=== PATIENT | male | born 1985 | race Caucasian/White ===

== ENCOUNTER 2021-03-09 21:05 | Emergency (ER) | payer SELFPAY ==
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
[2021-03-09 21:12] VITALS: BP 178/106; PULSE 92; RESP 17; TEMP 36.9; O2SAT 97
[2021-03-09 21:27] VITALS: BP 129/79; PULSE 77; RESP 24; O2SAT 96
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
[2021-03-09] MEDS: HYDROcodone/acetaminophen (*CRX) 5-325 MG TABLET 1 TAB PO (23:25)
== END 2021-03-09 23:30 | disposition home or self-care (01) ==
PROVIDERS: Emergency Provider Emergency Medicine
DX: S62.025A Nondisplaced fracture of middle third of navicular [scaphoid] bone of left wrist, initial encounter for closed fracture (principal); S52.042A Displaced fracture of coronoid process of left ulna, initial encounter for closed fracture; V86.56XA Driver of dirt bike or motor/cross bike injured in nontraffic accident, initial encounter
CPT/HCPCS: 29105; 73080; 73110; 73610; 73630; 99284; A4565; A9270

== ENCOUNTER 2022-04-30 16:04 | Emergency (ER) | payer OTHER, SELFPAY ==
[2022-04-30] VITALS (7 sets, daily range): BP systolic 113–129; BP diastolic 86–91; PULSE 84–92; RESP 17–27; TEMP 36.8; O2SAT 96–100
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
[2022-04-30 16:57] LABS: Basophils Absolute Auto 0.1 K/mm3 (0.0-0.1); Basophils Percent Auto 0.4 % (0.2-1.2); Eosinophils Percent Auto 0.2 % (0-4.4); Hematocrit 50.5 % (42.0-52.0); Immature Granulocyte Absolute 0.07 K/mm3 (0.00-0.031); Immature Granulocyte Percent A 0.6 % (0-0.5); Lymphocytes Absolute Auto 1.74 K/mm3 (0.9-3.2); Lymphocytes Percent Auto 13.8 % (18.3-44.2); Mean Corpuscular HGB Conc 33.7 g/dl (32-36); Mean Corpuscular Hemoglobin 28.7 pg (26-34); Mean Corpuscular Volume 85.3 fl (80-100); Mean Platelet Volume 9.9 fl (7.4-10.4); Monocytes Percent Auto 8.2 % (2.6-8.5); Neutrophils Absolute Auto 9.7 K/mm3 (1.3-6.7); Neutrophils Percent Auto 76.8 % (45.5-73.1); Platelet Count Result 296 k/mm3 (150-375); Red Blood Count 5.92 M/mm3 (4.6-6.20); Red Cell Distribution Width 12.5 % (11.5-14.5); White Blood Count 12.6 K/mm3 (4.5-10.0)
[2022-04-30 17:07] LABS: INR 1.1; Prothrombin Time 13.3 Seconds (11.1-14.7)
[2022-04-30 17:16] LABS: Add Urine Microscopic? YES; Appearance Urine Turbid (Clear); Bilirubin Urine 2+ (Negative); Blood Urine 3+ (Negative); Color Urine Red (Yellow); Glucose Urine UA Negative (Negative); Ketones Urine 1+ mg/dL (Negative); Leukocyte Esterase Ur Negative LEU/UL (Negative); Nitrate Urine Negative (Negative); Protein Urine 3+ mg/dL (Negative); Specific Grav Ur >= 1.030 (1.001-1.035); Urobilinogen Urine 0.2 mg/dL (<2.0); pH Urine 5.5 (5.0-9.0)
[2022-04-30 17:29] LABS: Amphetamine Screen Urine Negative (Negative); Barbiturate Screen Urine Negative (Negative); Benzodiazepines Screen Urine Negative (Negative); Cannabinoid Screen Urine Negative (Negative); Cocaine Screen Urine Positive (Negative); Methadone Screen Urine Negative (Negative); Opiate Screen Urine Negative (Negative); Phencyclidine Screen Urine Negative (Negative)
[2022-04-30 17:30] LABS: RBC Urine >75 /hpf (0-2)
[2022-04-30 17:31] LABS: Bacteria Urine Trace /hpf
[2022-04-30 17:47] LABS: Alanine Aminotransferase 88 U/L (6-50); Albumin Level 4.8 g/dL (3.5-5.1); Alkaline Phosphatase 74 U/L (38-126); Anion Gap 13 mmol/L (8-16); Aspartate Amino Transferase 112 U/L (17-59); Bilirubin,Total 1.7 mg/dL (0.2-1.3); Blood Urea Nitrogen 10 mg/dL (9-20); Calcium 8.9 mg/dL (8.4-10.2); Carbon Dioxide 23 mmol/L (22-30); Chloride 102 mmol/L (98-107); Estimated CRCL calculation 112 ml/min; Estimated Glomerular Filt Rate > 60; Glucose 117 mg/dL (65-110); Lipase 38 U/L (23-300); Sodium 138 mmol/L (137-145)
--- NOTE | 2022-04-30 18:06 | ECG_ITS ---
Measurements Intervals [place] Rate: 94 P: 39 CO: 127 QRS: 34 QRSD: 89 T: 23 QT: 335 QTc: 419 Interpretive Statements SINUS RHYTHM NO PREVIOUS ECG AVAILABLE FOR COMPARISON Electronically Signed On 05-01-2022 16:25:28 CDT by Larisa De Anda M.D.
--- NOTE | 2022-04-30 18:22 | PC.NURSE ---
Pt in imaging at this time.
--- NOTE | 2022-04-30 19:23 | PC.NURSE ---
Assumed care of pt at this time. Pt alert and upright on stretcher, updated on POC. C-collar in place. EDP Channing at bedside.
--- NOTE | 2022-04-30 22:12 | PC.NURSE ---
called [facility] for ETA update. ETA is 15 minutes.
[2022-04-30] MEDS: HYDROmorphone HCL INJ (*CRX) 1 MG/ML SYR 0.5 MG IV PUSH (22:40)
== END 2022-04-30 22:50 | disposition short-term general hospital (02) ==
PROVIDERS: Emergency Medicine; Emergency Provider Emergency Medicine
DX: S22.22XA Fracture of body of sternum, initial encounter for closed fracture (principal); S27.892A Contusion of other specified intrathoracic organs, initial encounter; R31.9 Hematuria, unspecified; V49.9XXA Car occupant (driver) (passenger) injured in unspecified traffic accident, initial encounter
CPT/HCPCS: 36415; 70450; 71260; 72125; 72129; 72132; 74177; 80053; 80307; 81001; 83690; 85025; 85610; 85730; 93005; 96374; 99285; J1170; L0140; Q9967

== ENCOUNTER 2025-04-21 01:16 | Emergency (ER) | payer SELFPAY ==
--- OUTSIDE RECORDS SUMMARY | 2025-04-21 01:18 | XMS_ITS | Referral Summary ---
Author Organization [facility] Address [address] [place] [address] Care Team Providers Care Hyperion Analyst Name Role Phone No, Physician Primary Care Provider [phone] Allergies No known active allergies Medications ibuprofen (ADVIL,MOTRIN) 600 mg tablet Take 600 mg by mouth as needed for pain 11/08/2011 Active oxyCODONE-aceta minophen (PERCOCET) 5-325 mg per tabletIndicatio ns:Pain Take 1-2 tablets by mouth every 4 (four) hours as needed for pain 40 tablet 04/05/2021 Active Active Problems Problem Noted Date Diagnosed Date Closed fracture dislocation of right elbow 03/30 Overview (03/30/2021): Added automatically from request for surgery [id number] Left elbow pain 03/21/2021 Pain in limb 11/08/2011 Immunizations Immunization Administration Dates Next Due Hep B, Adolescent or Pediatric 12/03/2001 Social History Tobacco Use Types Packs/Day Years Used Date Smoking Tobacco: Never Smokeless Tobacco: Never AUDIT-C Answer Date Recorded Q1: How often do you have a drink containing alc ohol? 2-3 times a week 04/05/2021 Q2: How many drinks containi ng alcohol do you have on a typical day when you are drinking? 1 or 2 04/05/2021 Q3: How often do you have si x or more drinks on one occasion? 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 Gender Identity Not on file Sexual Orientation Not on file Last Filed Vital Signs Vital Sign Reading Time Taken Comments Blood Pressure 125/84 04/05/2021 6:30 PM CDT Pulse 82 04/05/2021 6:25 PM CDT Temperature 36 C (96.8 F) 04/05/2021 6:10 PM CDT Respiratory Rate 16 04/05/2021 6:25 PM CDT Oxygen Saturation 98% 04/05/2021 6:25 PM CDT Inhaled Oxygen Concentration - - Weight 82.4 kg (181 lb 9.6 oz) 04/05/2021 1:10 P M CDT Height 177.8 cm (5' 10) 04/04/2021 12:15 PM CDT Body Mass Index 26.06 04/04/2021 12:15 PM CDT Plan of Treatment Not on file Medical Devices Implanted Type Area Product Marketing Intern Device Identifier Shelf Expiration Date Model / Serial / Lot [employer] [id number] Suturetak Fiberwire 3mm 14.5mm 2 Eidson Suture Biocomposite - [id number] Implanted:Qty: 1 on 04/05/2021 by Azam Lewis MD at [facility] [employer] 09/22/2024 AR-1934B CF / / [id number] [employer] Ar-7715 Internalbrace System Fixation Ulnar Collateral Ligament Repair - [id number] Implanted:Qty: 1 on 04/05/2021 by Azam Lewis MD at [facility] [employer] AR-7715 / / [id number] [employer] [id number] Swivelock C Fibertak Tigertail 4.75mm 22mm 2 Load 2 Eidson Suture - [id number] Implanted:Qty: 1 on 04/05/2021 by Azam Lewis MD at [facility] [employer] [id number] AR-2 [id number]- 2 / / [id number] Insurance [employer] [facility] Care Teams Hyperion Analyst Relationship Specialty Start Date End Date No, Physician PCP - General 03/14/21
--- OUTSIDE RECORDS SUMMARY | 2025-04-21 01:18 | XMS_ITS | Clinical Summary ---
Author Organization [facility] Address [address] [place] [address] Care Team Providers Care Senior It Architect Name Role Phone No, Physician Primary Care Provider [phone] Allergies No known active allergies Medications ibuprofen [...] (03/30/2021): Added automatically from request for surgery [id number] Left elbow pain 03/21/2021 Pain in limb 11/08/2011 Immunizations Immunization Administration Dates Next Due Hep B, Adolescent or Pediatric 12/03/2001 Surgical History Surgery Date Site/Laterality Comments CLAVICLE SURGERY 09/23/2009 - 09/22/2010 Left Family History Medical History Relation Name Comments No Known Problems Mother Relation Name Status Comments Mother Social History Tobacco Use Types Packs/Day Years [...] on file 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 Gender Identity Not on file Sexual Orientation Not on file Obstetrics History Last Filed Vital Signs Vital Sign Reading [...] 04/04/2021 12:15 PM CDT Plan of Treatment Health Maintenance Due Date Last Done Comments Depression Screening 1986 Hepatitis C Screening 1986 DTaP/Tdap/Td Vaccine (1 - Tdap) 1997 Varicella Vaccines (1 of 2 - 13+ 2-dose series) 1999 Regular Well Visit/Exam 18-64 2004 HPV Vaccines (1 - 3-dose SCD M series) 2013 Influenza Vaccine (#1) 2025 Hepatitis B Screening Completed 12/03/2001 Pneumococcal vaccine <65 Aged Out No longer eligible based on patient's age to complete this topic Medical Devices Implanted Type Area Diaphragm Builder Device Identifier Shelf Expiration Date Model / Serial / Lot [employer] Ar-1934bcf Suturetak Fiberwire 3mm 14.5mm 2 Kennedy Suture Biocomposite - [id number] Implanted:Qty: 1 on 04/05/2021 by Azam Lewis MD at [facility] [employer] 09/22/2024 AR-1934B CF / / [id number] [employer] Ar-7715 Internalbrace System Fixation Ulnar Collateral Ligament Repair - [id number] Implanted:Qty: 1 on 04/05/2021 by Azam Lewis MD at [facility] [employer] AR-7715 / / [id number] [employer] [id number] Swivelock C Fibertak Tigertail 4.75mm 22mm 2 Load 2 Kennedy Suture - [id number] Implanted:Qty: 1 on 04/05/2021 by Azam Lewis MD at [facility] [employer] [id number] AR-2 324BCT- 2 / / [id number] [facility] Care Teams Senior It Architect Relationship Specialty Start Date End Date No, Physician PCP - General 03/14/21
--- OUTSIDE RECORDS SUMMARY | 2025-04-21 01:18 | XMS_ITS | Continuity of Care Document ---
Author Organization [facility] Address [address] [place] [address] Phone Care Team Providers Care Agricultural Commodities Inspector Name Role Phone Liz Babin DO Unavailable Unavailable Allergies, Adverse Reactions, Alerts Substance Reaction Status Criticality No Known Drug Allergies Active No I nformation Procedures Procedure Date Office/outpatient visit,[facility] 2011 RTW Exam Advance Directives Directive Yes / No Effective Date File Name Resuscitation Not Answered N/A N/A Life Support Not Answered N/A N/A Intubation Not Answered N/A N/A Antibiotics Not Answered N/A N/A IV Fluid Support Not Answered N/A N/A Tube Feed Not Answered N/A N/A Other Directive N/A N/A WARNING:The information contained in this section is historical and is provided for information only and does not constitute a legal document or any assurance that the information is still accurate. Please verify the information with the nava of the legal document before using it for clinical purposes. Encounters Encounter Description Practice Location Reason(s) For Visit Diagnoses Date Provider Providers Copied on Encounter Office/outpat ient visit,[facility], [address] [place] [address], [id number], [place] tel:[phone] [facility] CONTUSION OF HAND(S) [address], [address], [place], [place], [id number] , [place]. tel: [phone] [facility], [address] [place] [address], [id number], [place] tel:[phone] [facility] Examination [address], [address], [place], [place], [id number] , [place]. tel: [phone] Family History Family Member Type Diagnosis Age At Onset No Information Payers Payer name Insurance type Covered constitution party ID Authoriza tion(s) No Information Social History Type Description Quantity Date Captured Comments Alcohol Use Details Unknown Caffeine Use Details Unknown Tobacco Use Status No Information Smoking Status Never smoker Sex Male Vital Signs Date / Time: Height Weight BMI Pulse Rate Blood Pressure Temperature Respiratory Rate Body Surface Area Head Circumference Head Circ. Percentile Wt./Bertin. Percentile BMI percentile Pulse Ox Inhaled Ox 1:50 PM 68.75 in 73.936 kg (163.00 lbs) 24.2 4 kg/m eter (2) 72 /min 112/70 mm[Hg] 97.20 F 20 /min Chief Complaint And Reason For Visit No Information Reason For Referral Reason For Referral No Information History Of Present Illness Encounter Date Complaint History Of Prese nt Illness No Information Functional Status Date Functional Assessmen t No Information Instructions Date Instruction Additional Infor mation No Information Assessments Type Assessment Date No Information Patient Care Teams Name Effective Dates (start - stop) Status Members No Information
--- OUTSIDE RECORDS SUMMARY | 2025-04-21 01:18 | XMS_ITS | Clinical Summary ---
Author Organization [facility] Address [address] [address] Care Team Providers Care Scoop Filler Name Role Phone Unavailable Primary Care Provider Unavailabl e Source Comments [facility],non-owned Affiliates and Associated Physician Practices is amultiple site organization consisting of ambulatory clinics and hospital sitesin [place], [place], [place] and [place]. This disclosure is being madepursuant to the Care Everywhere program and may not contain all information available regarding this patient. Last updated 18.[facility] Allergies No known active allergies Medications * Be aware that medications may not be up to date on this document. Alwaysverify current medications with the patient. hydrocodone-ac etaminophen (NORCO) 5-325 MG tablet Take 1 Tab by mouth every 4 hours as needed for Pain. 15 Tab 0 2 Active ibuprofen (MOTRIN) 800 MG tablet Take 1 Tab by mouth 3 times daily as needed for Pain. 20 Tab 0 2 Active acetaminophen (Tylenol) 500 MG tablet Take 2 (two) tablets by mouth every 8 hours Maximum allowable Acetaminophen amount = 4 Grams (4000 mg) / 24 hours. 2 Active lidocaine (Lidoderm) 5 % patch Apply 1 (one) patch to skin every 24 hours 2 Active docusate sodium (Colace) 100 MG capsule Take 1 (one) capsule by mouth 2 times daily 2 Active Active Problems Problem Noted Date Diagnosed Date Acute pain due to trauma 05/02/2022 Sternal fracture 05/02/2022 Rhabdomyolysis 05/02/2022 Hematuria 05/02/2022 Closed fracture of nasal bones 05/01/2022 Trauma 05/01/2022 Closed displaced fracture of seventh cervical vertebra with routine healing 05/01/2022 Pain in limb 11/08/2011 Immunizations Immunization Administration Dates Next Due TDAP (7yrs+) 04/30/2022(Deferred: Patient Ref used) Social History Tobacco Use Types Packs/Day Years Used Date Smoking Tobacco: Never Alcohol Use Standard Drinks/Week Comments Yes 0 (1 standard drink = 0.6 oz pur e alcohol) occ Sex and Gender Information Value Date Recorded Sex Assigned at Not on file Legal Sex Male 8:30 AM CDT Gender Identity Not on file Sexual Orientation Not on file Last Filed Vital Signs Vital Sign Reading Time Taken Comments Blood Pressure 123/75 05/02/2022 10:00 AM CDT Pulse 78 05/02/2022 9:48 AM CDT Temperature 36.4 C (97.5 F) 05/02/2022 9:48 AM CDT Respiratory Rate 16 05/02/2022 10:29 AM CDT Oxygen Saturation 98% 05/02/2022 10:00 AM CDT Inhaled Oxygen Concentration - - Weight 81.6 kg (180 lb) 04/30/2022 11:25 PM CDT Height 175.3 cm (5' 9) 04/30/2022 11:25 PM CDT Body Mass Index 26.58 04/30/2022 11:25 PM CDT Plan of Treatment Health Maintenance Due Date Last Done Comments HIV SCREENING 2001 HEPATITIS C SCREENING 05/22/2004 DTAP/TDAP/TD VACCINES (1 - Tdap) 2005 HEPATITIS B VACCINE (1 of 3 - 19+ 3-dose series) 2005 HPV VACCINE (1 - 3-dose SCDM series) 2013 COVID-19 VACCINE ( - 2023-2 5 season) 2024 DEPRESSION SCREENING 09/23/2024 INFLUENZA VACCINE (#1) 2025 ZOSTER VACCINE (1 of 2) 2036 HIB VACCINE Aged Out No longer eligi ble based on patient's age to complete this topic MENINGOCOCCAL (Group B) VACC INE SHARED DECISION-MAKING Aged Out No longer eligibl e based on patient's age to complete this topic MENINGOCOCCAL GROUPS A/C/Y/W VACCINE Aged Out No longer eligible b ased on patient's age to complete this topic PNEUMOCOCCAL VACCINE Aged Out No long er eligible based on patient's age to complete this topic Insurance MEDICAID - [facility] [place]ICAID - [place] MEDICAID - [facility] [place]ICAID - [place] TPL THIRD DEMOCRAT LIABILITY Republican Liability MEDICAID [facility] MEDICAID - OUT OF STATE MEDICAID - OUT OF STATE MEDICAID - OUT OF [facility] Advance Directives * Full Code (Latest Code Status on File) Date Activated Date Inactivated Comments 05/01/2022 1:16 AM 05/02/2022 11:49 AM
[2025-04-21 01:21] VITALS: BP 127/74; PULSE 97; RESP 16; TEMP 36.8; O2SAT 100
--- NOTE | 2025-04-21 01:25 | ED_ITS ---
HPI - General Adult General Chief complaint: Extremity Injury, Upper Stated complaint: left hand injury Time Seen by Provider: 04/21/25 01:21 History of Present Illness HPI narrative: This is a 39-year-old male presenting for left hand pain. Patient found out his girlfriend cheated on him and punched a wall. No other injuries. Patient admits alcohol use. Related Data Home Medications ?Medication ?Instructions ?Recorded ?Confirmed ?Last Taken ?Type No Home Medications 04/30/22 04/30/22 Unknown History Allergies Allergy/AdvReac Type Severity Reaction Status Date / Time No Known Allergies Allergy Verified 04/21/25 01:17 [facility] Past Medical History Medical History Fx navicular, wrist-closed Social History Social History (Updated 04/30/22 @ 17:44 by Belen Guillory MD) Substance use: current Substance use type: crack/cocaine Exam Narrative: APPEARANCE: No apparent distress. Head: atraumatic. EYES: EOMI, NOSE: Atraumatic NECK: Trachea midline RESPIRATORY: No increased rate of breathing CARDIOVASCULAR: RRR, ABDOMINAL: Non-distended MUSCULOSKELETAl: Focal exam of the left hand showed swelling over the 3rd knuckle with a laceration. Cap refill less 2 seconds. NEURO: Alert. Moving 4/4 extremities SKIN:: Warm, dry. Normal color PSYCHIATRIC: Normal affect Course Vital Signs Vital signs: Vital Signs Temperature 98.3 F 04/21/25 01:21 Pulse Rate 97 04/21/25 01:21 Respiratory Rate 16 04/21/25 01:21 Blood Pressure 127/74 04/21/25 01:21 Pulse Oximetry 100 04/21/25 01:21 Oxygen Delivery Room Air 04/21/25 01:21 Temperature 98.3 F 04/21/25 01:21 Pulse Rate 97 04/21/25 01:21 Respiratory Rate 16 04/21/25 01:21 Blood Pressure 127/74 04/21/25 01:21 Pulse Oximetry 100 04/21/25 01:21 Oxygen Delivery Room Air 04/21/25 01:21 Medical Decision Making [facility] Narrative Medical decision making narrative: -Course: 39-year-old male presenting to the ED with a hand injury after punching a wall. Tdap and x-rays were ordered. The patient then eloped from the ED. Vital Signs Vital Signs: Vital Signs Temperature 98.3 F 04/21/25 01:21 Pulse Rate 97 04/21/25 01:21 Respiratory Rate 16 04/21/25 01:21 Blood Pressure 127/74 04/21/25 01:21 Pulse Oximetry 100 04/21/25 01:21 Oxygen Delivery Room Air 04/21/25 01:21 Temperature 98.3 F 04/21/25 01:21 Pulse Rate 97 04/21/25 01:21 Respiratory Rate 16 04/21/25 01:21 Blood Pressure 127/74 04/21/25 01:21 Pulse Oximetry 100 04/21/25 01:21 Oxygen Delivery Room Air 04/21/25 01:21 Discharge Plan Discharge Clinical Impression: Hand injury Patient Disposition: Elopement After Seen by Prov Patient Language: Greek Prescriptions: No Action No Home Medications Follow-up/Referrals: PHYSICIAN,TAXATION ACCOUNTANT [Primary Care Provider] -
--- OUTSIDE RECORDS SUMMARY | 2025-04-21 01:32 | XMS_ITS | Continuity of Care Document ---
Author Organization [facility] Address [address] [place] [address] Phone Care Team Providers Care Group Art Supervisor Name Role Phone Liz Babin DO Unavailable Unavailable Allergies, Adverse Reactions, Alerts Substance Reaction Status Criticality No Known Drug Allergies Active No I nformation Procedures Procedure Date Office/outpatient visit[place] [place] Exam Advance Directives Directive Yes [...] Provider Providers Copied on Encounter Office/outpat ient visit,[facility], [address] [place] [address], [id number], [place] tel:[phone] [facility] CONTUSION OF HAND(S) [address] [facility] [address], [address], [place], [place], [id number] , [place]. tel: [phone] [facility], [address] [place] [address], [id number], [place] tel:[phone] [facility] Occupational Health Examination [address] [facility], [address], [place], [place], [id number] , [place]. tel: [phone] Family History Family Member Type Diagnosis Age At Onset No Information Payers Payer name Insurance type Covered green party ID Authoriza tion(s) No Information Social [...]
--- NOTE | 2025-04-21 01:33 | PC.NURSE ---
Pt left after stating I do not want to pay for this and left the depart and was seen leaving with steady gait
== END 2025-04-21 01:34 | disposition left against medical advice (07) ==
LOC: ANHED 01:30
PROVIDERS: Emergency Provider Emergency Medicine
DX: S69.92XA Unspecified injury of left wrist, hand and finger(s), initial encounter (principal); W22.09XA Striking against other stationary object, initial encounter
CPT/HCPCS: 99281

== ENCOUNTER 2025-04-21 08:55 | Emergency (ER) | payer SELFPAY ==
--- NOTE | ~2025-04-21 | XR_ITS ---
XR hand LT min 3V 04/21/2025 09:13 Indication: Left hand pain after injury Procedure: 3 views left hand Comparison: 03/09/2021 Findings: There is a fracture involving the neck of the fifth metacarpal with mild volar angulation. There is a healed scaphoid fracture. No other fracture is identified. No significant soft tissue abno rmality. No foreign bodies. Impression: 1: Fracture left fifth metacarpal neck with mild volar angulation Reviewed, dictated and finalized at location [] Impression: 1: Fracture left fifth metacarpal neck with mild volar angulation
[2025-04-21 09:00] VITALS: BP 122/68; PULSE 88; RESP 16; TEMP 36.4; O2SAT 98
--- OUTSIDE RECORDS SUMMARY | 2025-04-21 09:07 | XMS_ITS | Referral Summary ---
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 Gender Identity Not on file Sexual Orientation [...] on file Medical Devices Implanted Type Area Fine Artist Device Identifier Shelf Expiration Date Model / Serial / Lot [employer] Ar-1934bcf Suturetak Fiberwire 3mm 14.5mm 2 [place] Suture Biocomposite - [id number] Implanted:Qty: 1 on 04/05/2021 by Azam Lewis MD at [facility] [employer] 09/22/2024 AR-1934B CF / / [id number] [employer] Ar-7715 Internalbrace System Fixation Ulnar Collateral Ligament Repair - [id number] Implanted:Qty: 1 on 04/05/2021 by Azam Lewis MD at [facility] [employer] AR-7715 / / [id number] [employer] [id number] Swivelock C Fibertak Tigertail 4.75mm 22mm 2 Load 2 [place] Suture - [id number] Implanted:Qty: 1 on 04/05/2021 by Azam Lewis MD at [facility] [employer] [id number] AR-2 324BCT- 2 / / [id number] Insurance AETNA [facility] Care Teams School Photographs Detailer Relationship Specialty Start Date End Date No, Physician PCP - General 03/14/21
--- OUTSIDE RECORDS SUMMARY | 2025-04-21 09:07 | XMS_ITS | Continuity of Care Document ---
Author Organization [facility] Address [address] [place] [address] Phone Care Team Providers Care Retail Sales Teammate Name Role Phone Liz Babin DO Unavailable Unavailable Allergies, Adverse Reactions, Alerts Substance Reaction Status Criticality No Known Drug Allergies Active No I nformation Procedures Procedure Date [facility]patient [facility] [place]W Exam Advance Directives Directive Yes [...] Provider Providers Copied on Encounter Office/outpat ient visit,[facility], [address] [place] [address], [id number], [place] tel:[phone] [facility] CONTUSION OF HAND(S) [address] [facility], [address], [place], [place], [id number] , [place]. tel: [phone] [facility], [address] [place] [address], [id number], [place] tel:[phone] [facility] Occupational Health Examination [address], [address], [place], [place], [id number] , [place]. tel: [phone] Family History Family Member Type Diagnosis Age At Onset No Information Payers Payer name Insurance type Covered democrat ID Authoriza tion(s) No Information Social History [...]
--- OUTSIDE RECORDS SUMMARY | 2025-04-21 09:07 | XMS_ITS | Clinical Summary ---
Author Organization [facility] Address [address] [place] [address] Care Team Providers Care Cleaning Maid Name Role Phone Unavailable Primary Care Provider Unavailabl e Source Comments [facility],non-owned Affiliates and Associated Physician Practices is amultiple site organization consisting of ambulatory clinics and hospital sitesin [place], [place], [place] and [place]. This disclosure is being madepursuant to the Care Everywhere program and may not contain all information available regarding this patient. Last updated 18.[facility] [facility] [employer] Allergies No known active allergies Medications * [...] to complete this topic Insurance MEDICAID - [facility] MEDICAID - [place] MEDICAID - [facility] [place]ICAID - [place] TPL THIRD GREEN PARTY LIABILITY Republican Liability MEDICAID [facility] MEDICAID - OUT OF STATE MEDICAID - OUT OF STATE MEDICAID - OUT OF [facility] Advance Directives * Full Code (Latest Code Status on File) Date Activated Date Inactivated Comments 05/01/2022 1:16 AM 05/02/2022 11:49 AM
--- OUTSIDE RECORDS SUMMARY | 2025-04-21 09:07 | XMS_ITS | Clinical Summary ---
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 Gender Identity Not on file Sexual Orientation [...] this topic Medical Devices Implanted Type Area 4 H Youth Development Specialist Device Identifier Shelf Expiration Date Model / Serial / Lot [employer] Ar-1934bcf Suturetak Fiberwire 3mm 14.5mm 2 [place] Suture Biocomposite - [id number] Implanted:Qty: 1 on 04/05/2021 by Azam Lewis MD at [facility] [employer] 09/22/2024 AR-1934B CF / / [id number] [employer] Ar-7715 Internalbrace System Fixation Ulnar Collateral Ligament Repair - [id number] Implanted:Qty: 1 on 04/05/2021 by Azam Lewis MD at [facility] [employer] AR-7715 / / [id number] [employer] [id number] Swivelock C Fibertak Tigertail 4.75mm 22mm 2 Load 2 [place] Suture - [id number] Implanted:Qty: 1 on 04/05/2021 by Azam Lewis MD at [facility] [employer] [id number] AR-2 324BCT- 2 / / [id number] [facility] Care Teams Medication Administration Professional Relationship Specialty Start Date End Date No, Physician PCP - General 03/14/21
--- NOTE | 2025-04-21 09:52 | ED.UPPEXIN ---
HPI - Extremity Injury (Upper) General Chief Complaint: Extremity Injury, Upper Stated Complaint: left hand injury Time Seen by Provider: 04/21/25 09:10 History of Present Illness HPI narrative: 39-year-old male presents with left hand pain since last night. Patient states he became upset and punched a wooden wall. Patient having pain to left hand since last night. Patient is right-hand dominant. Patient has no other complaint. Patient has a small abrasion to the 3rd metacarpal. Patient has no other complaints Onset (ago): day(s) (1) Other Extremity Injury: Left: hand Other injuries: none Handedness: right Related Data Allergies Allergy/AdvReac Type Severity Reaction Status Date / Time No Known Allergies Allergy Verified 04/21/25 01:17 Review of Systems Review of Systems: A 10 system review of systems was completed on the patient and is negative except for what is stated in the HPI. Nursing and ancillary documentation was reviewed. PMFSH Past Medical History Medical History Fx navicular, wrist-closed Social History Social History (Updated 04/30/22 @ 17:44 by Belen Guillory MD) Substance use: current Substance use type: crack/cocaine Exam Narrative: GENERAL: Well-appearing, well-nourished, and in no acute distress. HEAD: Normocephalic, atraumatic. EYES: PERRLA and EOMI. ENT: Nares clear, no rhinorrhea or epistaxis. Mucous membranes moist. NECK: Supple. CHEST: Clear to auscultation. No respiratory distress. HEART: Regular rate and rhythm. No murmur heard. Normal peripheral pulses. ABDOMEN: Soft, nontender, nondistended, normal active bowel sounds. EXTREMITIES: Swelling to left 5th metacarpal. Decreased range of motion SKIN: Small abrasion to right 3rd metacarpal NEURO: No focal deficits. Alert and oriented x3. PSYCH: Normal mood and affect. Course Course Emergency Course: X-rays ordered. Patient states tetanus is up-to-date. Patient states he drove here so no narcotic pain medication given PRESCHOOL SUBSTITUTE TEACHER/PA Physician Supervision Dr. Snell Consultations Consultation #1: Dr. Calvo Date: 04/21/25 Time: 10:09 Vital Signs Vital signs: Vital Signs Temperature 36.4 C 04/21/25 09:00 Pulse Rate 88 04/21/25 09:00 Respiratory Rate 16 04/21/25 09:00 Blood Pressure 122/68 04/21/25 09:00 Pulse Oximetry 98 04/21/25 09:00 Temperature 36.4 C 04/21/25 09:00 Pulse Rate 88 04/21/25 09:00 Respiratory Rate 16 04/21/25 09:00 Blood Pressure 122/68 04/21/25 09:00 Pulse Oximetry 98 04/21/25 09:00 MDM - Extremity Injury (Upper) MDM Narrative Medical decision making narrative: I spoke with Dr. Calvo with orthopedic. Recommended ulnar gutter and follow-up with his office. Differential Diagnosis Differential diagnosis: Likely finger sprain and fracture of hand Discharge Plan Discharge Clinical Impression: Hand fracture, left Patient Disposition: Home Condition: Stable Instructions: Antibiotic Form, Boxer Fracture (ED) Additional Instructions: Take medications as prescribed Return for worsening symptoms Follow-up with orthopedics as soon as possible Patient Language: Indonesian Prescriptions: New hydrocodone-acetaminophen 5-325 mg tablet 1 tablet PO Q8H PRN (Reason: pain) Qty: 14 0RF Follow-up/Referrals: PHYSICIAN,PATROL DEPUTY SHERIFF [Primary Care Provider] - Maksim Calvo MD [Physician] - 1 Day Stand Alone Forms: Work/School Release IP Time of Disposition: 10:16
--- OUTSIDE RECORDS SUMMARY | 2025-04-21 09:53 | XMS_ITS | Clinical Summary ---
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 [employer] 09/22/2024 AR-1934B CF / / [id number] [employer] Ar-7715 Internalbrace System Fixation Ulnar Collateral Ligament Repair - [id number] Implanted:Qty: 1 on 04/05/2021 by Azam Lewis MD at [facility] [employer] AR-7715 / / [id number] [employer] [id number] Swivelock C Fibertak Tigertail 4.75mm 22mm 2 Load 2 [place] Suture - [id number] Implanted:Qty: 1 on 04/05/2021 by Azam Lewis MD at [facility] [employer] [id number] AR-2 324BCT- 2 / / [id number] [facility] Care Teams Product Ambassador Relationship Specialty Start Date End Date No, Physician PCP - General 03/14/21
--- OUTSIDE RECORDS SUMMARY | 2025-04-21 09:53 | XMS_ITS | Clinical Summary ---
Author Organization [facility] Address [address] [facility] [place] [address] Care Team Providers Care Sandblast Operator Name Role Phone Unavailable Primary Care Provider Unavailabl e Source Comments [facility],non-owned Affiliates and Associated Physician Practices is amultiple site organization consisting of ambulatory clinics and hospital sitesin [place], [place], [place] and [place]. This disclosure is being madepursuant to the Care Everywhere program and may not contain all information available regarding this patient. Last updated 18.[facility] [place] Allergies No known active allergies Medications * [...] to complete this topic Insurance MEDICAID - [facility] MEDICAID - [place] MEDICAID - [facility] MEDICAID - [place] TPL THIRD REPUBLICAN LIABILITY Alliance Party Liability MEDICAID [facility] MEDICAID - OUT OF STATE MEDICAID - OUT OF STATE MEDICAID - OUT OF [facility] Advance Directives * Full Code (Latest Code Status on File) Date Activated Date Inactivated Comments 05/01/2022 1:16 AM 05/02/2022 11:49 AM
--- OUTSIDE RECORDS SUMMARY | 2025-04-21 09:53 | XMS_ITS | Referral Summary ---
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 Gender Identity Not on file Sexual Orientation [...] on file Medical Devices Implanted Type Area Cuff Turner Machine Operator Device Identifier Shelf Expiration Date Model / Serial / Lot [employer] Ar-1934bcf Suturetak Fiberwire 3mm 14.5mm 2 [place] Suture Biocomposite - [id number] Implanted:Qty: 1 on 04/05/2021 by Azam Lewis MD at [facility] [employer] 09/22/2024 AR-1934B CF / / [id number] [employer] Ar-7715 Internalbrace System Fixation Ulnar Collateral Ligament Repair - [id number] Implanted:Qty: 1 on 04/05/2021 by Azam Lewis MD at [facility] [employer] AR-7715 / / [id number] [employer] [id number] Swivelock C Fibertak Tigertail 4.75mm 22mm 2 Load 2 [place] Suture - [id number] Implanted:Qty: 1 on 04/05/2021 by Azam Lewis MD at [facility] [employer] [id number] AR-2 324BCT- 2 / / [id number] Insurance A[employer]NA [facility] Care Teams Release And Technical Records Clerk Relationship Specialty Start Date End Date No, Physician PCP - General 03/14/21
--- OUTSIDE RECORDS SUMMARY | 2025-04-21 09:54 | XMS_ITS | Continuity of Care Document ---
Author Organization [facility] Address [address] [place] [address] Phone Care Team Providers Care Yard Rigger Name Role Phone Liz Babin DO Unavailable Unavailable Allergies, Adverse Reactions, Alerts Substance Reaction Status Criticality No Known Drug Allergies Active No I nformation Procedures Procedure Date Office/outpatient visit[place] [place] Exam Advance Directives Directive Yes [...] Provider Providers Copied on Encounter Office/[facility]pat ient visit,[facility], [address] [place] [address], [id number], [place] tel:[phone] [facility] [employer] [facility] CONTUSION OF HAND(S) [address] [facility], [address], [place], [place], [id number] , [place]. tel: [phone] [facility], [address] [place] [address], [id number], [place] tel:[phone] [facility] Occupational Health Examination [address] [facility], [address], [place], [place], [id number] , [place]. tel: [phone] Family History Family Member Type Diagnosis Age [...]
== END 2025-04-21 10:55 | disposition home or self-care (01) ==
PROVIDERS: Emergency Provider Nurse Practitioner Family
DX: S62.337A Displaced fracture of neck of fifth metacarpal bone, left hand, initial encounter for closed fracture (principal); W22.09XA Striking against other stationary object, initial encounter
CPT/HCPCS: 29125; 73130; 99284

== ENCOUNTER 2025-06-29 11:04 | Emergency (ER) | payer OTHER, SELFPAY ==
--- NOTE | ~2025-06-29 | US_ITS ---
EXAMINATION: US venous doppler [facility] DATE: 06/29/2025 11:57 INDICATION: Left lower limb swelling. TECHNIQUE: Grayscale ultrasound images without and with compression and Doppler ultrasound images of the left lower extremity veins were obtained. COMPARISON: None. FINDINGS: The visualized portions of left common femoral vein, profunda (deep) femoral vein, femoral vein, popliteal vein, peroneal veins, posterior tibial veins, and greater saphenous vein outflow are patent. IMPRESSION: 1. No deep venous thrombosis. Reviewed, dictated and finalized at location E.
--- NOTE | ~2025-06-29 | XR_ITS ---
Examination: XR tibia fibula LT 2V, XR ankle LT min 3V Clinical History: fall x1 WK AGO; LT LOWER LEG ANKLE BRUISING SWELLING Comparison: None Technique: 2 views left tibia fibula, 4 views left ankle Findings/impression: Left tibia-fibula: 1. No fracture. Left ankle: 1. No fracture or dislocation. Reviewed, dictated and finalized at location R.
[2025-06-29 11:08] VITALS: BP 124/91; PULSE 92; RESP 18; TEMP 36.6; O2SAT 98
[2025-06-29] MEDS: KETOROLAC (*BKC) 60 MG/2 ML VIAL IM (11:50)
--- NOTE | 2025-06-29 12:03 | ED_ITS ---
HPI - Extremity Injury (Lower) General Chief Complaint: Extremity Injury, Lower Stated Complaint: left leg pain, fall Time Seen by Provider: 06/29/25 11:14 Source: patient Mode of arrival: ambulatory Limitations: no limitations History of Present Illness HPI Narrative: Patient is a 40-year-old male who presents the ED with report of left lower extremity pain. Patient reports he tripped and fell down his stairs 1 week ago and injured his left lower leg. Has had pain, bruising, swelling throughout his left calf is to his left foot. Reports the pain has worsened to the point he is having difficulty ambulating. Has not taken anything for pain over the past week. Denies numbness. Denies any other injuries from the fall. Denies head injury or LOC. Related Data Allergies Allergy/AdvReac Type Severity Reaction Status Date / Time No Known Allergies Allergy Verified 06/29/25 11:25 Review of Systems Review of Systems: All systems reviewed & are unremarkable except as noted in HPI. All systems reviewed & are unremarkable except as noted in HPI and below PMFSH Past Medical History Medical History Fx navicular, wrist-closed Surgical History Surgical History History of shoulder surgery History of elbow surgery Social History Social History Smoking status: Never smoker Substance use: current Substance use type: crack/cocaine Do You Feel Safe in your Home?: No Lack of Transportation: No Lack of Food: Never True Current Housing: I Have Housing Concerned About Future Housing: No Difficulty Paying Gas/Electric Bills: No Difficulty Paying for Meds: No Currently Unemployed: No Education: High School Diploma/GED Difficulty w/ Childcare or Family Care: No Exam Narrative: GENERAL: Well appearing, well-nourished, non-toxic, in no acute distress. HEAD: Normocephalic, atraumatic. RESPIRATORY: Airway patent, respirations nonlabored. Clear to auscultation bilaterally, no rales, rhonchi, wheezing. CARDIOVASCULAR: Regular rate and rhythm. Pedal pulses intact MUSCULOSKELETAL: Moves all extremities. Slight decreased dorsiflexion of L ankle, but negative figueroa test. Achilles intact. Swelling throughout L calf with hematoma formation. Mild swelling extending into L lower extremity, diffuse bruising in various stages in calf, dorsal foot/medial and lateral ankle. Diffuse tenderness throughout L calf, medial/lateral malleoli. SKIN: Warm, dry, normal color. NEURO: A&O X3. Speech clear. Cranial nerves II-XII grossly intact. No ataxic movements. PSYCHIATRIC: Appropriate mood and affect. Normal interaction. Course Vital Signs Vital signs: Vital Signs Temperature 97.8 F 06/29/25 11:08 Pulse Rate 92 06/29/25 11:08 Respiratory Rate 18 06/29/25 11:08 Blood Pressure 124/91 H 06/29/25 11:08 Pulse Oximetry 98 06/29/25 11:08 Temperature 97.8 F 06/29/25 11:08 Pulse Rate 92 06/29/25 11:08 Respiratory Rate 18 06/29/25 11:08 Blood Pressure 124/91 H 06/29/25 11:08 Pulse Oximetry 98 06/29/25 11:08 MDM - Extremity Injury (Lower) MDM Narrative Medical decision making narrative: Patient?s injury is consistent with musculoskeletal etiology. No signs of neurologic or vascular compromise on physical examination. Compartments are soft without signs of compartment syndrome. Achilles tendon is intact. Positive involuntary plantar flexion with palpation of calf. Venous Doppler negative for DVT. XR of left ankle, left tib/fib negative for fx. Pain is consistent with muscle/ankle strain, hematoma formation. Patient is felt to be stable for discharge home and further outpatient management and treatment. Given martin bandage and crutches. Discussed rice therapy. Given return precautions. Patient in agreement with plan. Discharged in stable condition. Medical Records Attestation: I reviewed the patient's medical records. Imaging Data Attestation: I personally reviewed and interpreted this imaging study as follows: Radiologist's impression: ITS Impressions Venous Doppler Study 06/29/25 12:00 IMPRESSION: 1. No deep venous thrombosis. Discharge Plan Discharge Clinical Impression: Hematoma of left lower leg Muscle strain of left lower leg Qualifiers: Encounter type: initial encounter Qualified Code(s): S86.912A - Strain of unspecified muscle(s) and tendon(s) at lower leg level, left leg, initial e ncounter Sprain of left ankle Qualifiers: Encounter type: initial encounter Involved ligament of ankle: unspecified l igament Qualified Code(s): S93.402A - Sprain of unspecified ligament of left ankle, initial encounter Patient Disposition: Home Condition: Stable Instructions: Antibiotic Form, Ankle Sprain (ED), Hematoma (ED), Bone Bruise (ED) Additional Instructions: Keep leg elevated as much as possible. Recommend frequent icing to areas of pain. Recommend Tylenol/ibuprofen around the clock as needed for pain. Use Martin bandage for compression and support. Use crutches as needed for assistance with walking. Follow-up with your primary care doctor for further evaluation. Return to the ED if you experience worsening or severe pain or swelling, recurrent fall or injury, numbness, or any other symptoms of concern Patient Language: Chinese Prescriptions: No Action hydrocodone-acetaminophen 5-325 mg tablet 1 tablet PO Q8H PRN (Reason: pain) Qty: 14 0RF Follow-up/Referrals: PHYSICIAN NOT ON STAFF,NONSTAFF [Primary Care Provider] Time of Disposition: 13:14
--- OUTSIDE RECORDS SUMMARY | 2025-06-29 12:18 | XMS_ITS | Clinical Summary ---
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 Gender Identity Not on file Sexual Orientation [...] Medical Devices Implanted Type Area Product Marketing Specialist Device Identifier Shelf Expiration Date Model / Serial / Lot [employer] Ar-1934bcf Suturetak Fiberwire 3mm 14.5mm 2 Ce[place] Suture Biocomposite - [id number] Implanted:Qty: 1 on 04/05/2021 by Azam Lewis MD at [facility] [employer] 09/22/2024 AR-1934B CF / / [id number] [employer] Ar-7715 Internalbrace System Fixation Ulnar Collateral Ligament Repair - [id number] Implanted:Qty: 1 on 04/05/2021 by Azam Lewis MD at [facility] [employer] AR-7715 / / [id number] [employer] [id number] Swivelock C Fibertak Tigertail 4.75mm 22mm 2 Load 2 Ceres Suture - [id number] Implanted:Qty: 1 on 04/05/2021 by Azam Lewis MD at [facility] [employer] [id number] AR-2 324BCT- 2 / / [id number] Insurance [employer] BETTER [facility] Care Teams Tire Rebuilder Relationship Specialty Start Date End Date No, Physician PCP - General 03/14/21
--- OUTSIDE RECORDS SUMMARY | 2025-06-29 12:18 | XMS_ITS | Clinical Summary ---
Author Organization [facility] Address [address] [place] [address] Care Team Providers Care Coin Purse Framer Name Role Phone Unavailable Primary Care Provider Unavailabl e Source Comments [facility],non-owned Affiliates and Associated Physician Practices is amultiple site organization consisting of ambulatory clinics and hospital sitesin [place], [place], [place] and [place]. This disclosure is being madepursuant to the Care Everywhere program and may not contain all information available regarding this patient. Last updated 18.[facility] [employer] Allergies No known active allergies Medications * [...] VACCINE (1 - 3-dose SCDM series) 2013 DEPRESSION SCREENING 09/23/2024 COVID-19 VACCINE ( - 2023-2 5 season) 2025 INFLUENZA VACCINE (#1) 2025 ZOSTER VACCINE (1 [...] to complete this topic Insurance MEDICAID - [facility] [place]ICAID - [place] MEDICAID - [facility] [place]ID [place] TPL THIRD LIBERTARIAN LIABILITY [employer] Party Liability MEDICAID [facility] MEDICAID - OUT OF STATE MEDICAID - OUT OF STATE MEDICAID - OUT OF [facility] Advance Directives * Full Code (Latest Code Status on File) Date Activated Date Inactivated Comments 05/01/2022 1:16 AM 05/02/2022 11:49 AM
--- OUTSIDE RECORDS SUMMARY | 2025-06-29 13:33 | XMS_ITS | Clinical Summary ---
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 Gender Identity Not on file Sexual Orientation [...] on file Medical Devices Implanted Type Area Photocomposing Machine Operator Device Identifier Shelf Expiration Date Model / Serial / Lot [employer] Ar-1934bcf Suturetak Fiberwire 3mm 14.5mm 2 [place] Suture Biocomposite - [id number] Implanted:Qty: 1 on 04/05/2021 by Azam Lewis MD at [facility] [employer] 09/22/2024 AR-1934B CF / / [id number] [employer] Ar-7715 Internalbrace System Fixation Ulnar Collateral Ligament Repair - [id number] Implanted:Qty: 1 on 04/05/2021 by Azam Lewis MD at [facility] [employer] AR-7715 / / [id number] [employer] [id number] Swivelock C Fibertak Tigertail 4.75mm 22mm 2 Load 2 [place] Suture - [id number] Implanted:Qty: 1 on 04/05/2021 by Azam Lewis MD at [facility] [employer] [id number] AR-2 324BCT- 2 / / [id number] Insurance [employer]ET[employer] BETTER [facility] Care Teams Professional Caster Relationship Specialty Start Date End Date No, Physician PCP - General 03/14/21
--- OUTSIDE RECORDS SUMMARY | 2025-06-29 13:34 | XMS_ITS | Clinical Summary ---
Author Organization [facility] Address [address] [place] [address] Care Team Providers Care Information Assurance Analyst Name Role Phone Unavailable Primary Care Provider Unavailabl e Source Comments [facility],non-owned Affiliates and Associated Physician Practices is amultiple site organization consisting of ambulatory clinics and hospital sitesin [place], [place], [place] and [place]. This disclosure is being madepursuant to the Care Everywhere program and may not contain all information available regarding this patient. Last updated 18.[facility] [employer] Accelerator Allergies No known active allergies Medications * [...] to complete this topic Insurance MEDICAID - [facility] MEDICAID - [place] MEDICAID - [facility] MEDICAID - [place] TPL THIRD LIBERTARIAN LIABILITY Green Party Liability MEDICAID [facility] MEDICAID - OUT OF STATE MEDICAID - OUT OF STATE MEDICAID - OUT OF [facility] Advance Directives * Full Code (Latest Code Status on File) Date Activated Date Inactivated Comments 05/01/2022 1:16 AM 05/02/2022 11:49 AM
== END 2025-06-29 13:25 | disposition home or self-care (01) ==
PROVIDERS: Emergency Provider Physician Assistant
DX: S80.12XA Contusion of left lower leg, initial encounter (principal); S86.912A Strain of unspecified muscle(s) and tendon(s) at lower leg level, left leg, initial encounter; S93.402A Sprain of unspecified ligament of left ankle, initial encounter; W10.9XXA Fall (on) (from) unspecified stairs and steps, initial encounter
CPT/HCPCS: 73590; 73610; 93971; 96372; 99284; J1885